=== PATIENT | female | born 1970 | race Caucasian/White ===

== ENCOUNTER 2018-01-21 01:21 | Emergency (ER) | END 2018-01-21 08:04 | disposition short-term general hospital (02) ==

== ENCOUNTER 2018-05-22 13:03 | Inpatient (IN) | END 2018-05-24 16:27 | disposition home or self-care (01) | DRG 683 ==

== ENCOUNTER 2018-07-07 13:29 | Inpatient (IN) | END 2018-07-08 17:35 | disposition home or self-care (01) | DRG 149 ==